=== PATIENT | male | born 1970 | race Caucasian/White ===

== ENCOUNTER 2018-02-15 10:51 | Inpatient (IN) | payer OTHER ==
[~2018-02-15] VITALS: Ht 190.5 cm; Wt 197.3 kg
[~2018-02-15 10:51] MED LIST: ADVIL200 M1 PO; BACTRIM DS TAB1 EACH PO; BACTROBAN15 G1 TOP; CIPRO500 MG PO; LISINOPRIL10 MG PO
[2018-02-15 11:34] LABS: BASOPHILS # (AUTO) 0.1 (0.0-0.1); BASOPHILS % 0.6 % (0.0-1.0); EOSINOPHILS % 0.1 % (0.0-6.0); HEMATOCRIT 39.1 % (38.2-49.6); HEMOGLOBIN 12.3 g/dL (14.0-18.0); LYMPHOCYTES # (AUTO) 2.7 (1.0-3.2); LYMPHOCYTES % 15.4 % (18.0-39.1); MEAN CORPUSCULAR HEMOGLOBIN 25.1 pg (28-32); MEAN CORPUSCULAR HGB CONC 31.5 g/dL (31-35); MEAN CORPUSCULAR VOLUME 79.8 fL (81-99); MONOCYTES # (AUTO) 1.4 (0.2-0.8); MONOCYTES % 7.8 % (4.4-11.3); NEUTROPHILS # (AUTO) 11.8 (2.1-6.9); NEUTROPHILS % 67.8 % (38.7-80.0); PLATELET COUNT 348 x10e3/uL (140-360); RED CELL DISTRIBUTION WIDTH 17.2 % (11.7-14.4)
[2018-02-15 11:53] LABS: ALANINE AMINOTRANSFERASE 72 IU/L (0-55); ALBUMIN 2.4 g/dL (3.5-5.0); ALBUMIN/GLOBULIN RATIO 0.4 (0.8-2.0); ALKALINE PHOSPHATASE 162 IU/L (40-150); ANION GAP 12.9 mmol/L (8-16); BLOOD UREA NITROGEN 22 mg/dL (7-26); BUN/CREATININE RATIO 19 (6-25); CALCIUM 10.1 mg/dL (8.4-10.2); CARBON DIOXIDE 30 mmol/L (22-29); CHLORIDE 96 mmol/L (98-107); CREATINE KINASE 31 IU/L (30-200); CREATININE, SERUM 1.16 mg/dL (0.72-1.25); EST GLOMERULAR FILTRATION RATE > 60 ML/MIN (60-); GLUCOSE 117 mg/dL (74-118); MAGNESIUM 1.5 MG/DL (1.3-2.1); POTASSIUM 3.9 mmol/L (3.5-5.1); SODIUM 135 mmol/L (136-145)
[2018-02-15 11:59] LABS: B-TYPE NATRIURETIC PEPTIDE2 157.8 pg/mL (0-100)
[2018-02-15] MEDS ORDERED: VANCOMYCIN 1GM/NS 250 ML 250 ML IV STA (12:03)
[2018-02-15] MEDS ORDERED: SODIUM CHLORIDE 0.9% 1000ML 1,000 ML ONE (12:04)
[2018-02-15] MEDS ORDERED: CLINDAMYCIN PHOS 900MG/ D5W 50 50 ML IV STA (12:04)
[2018-02-15 12:10] LABS: HYPOCHROMASIA SLIGHT; LYMPHOCYTES % (MANUAL) 10 % (19-48); METAMYELOCYTES % (MANUAL) 3 % (0-0); MONOCYTES % (MANUAL) 7 % (3.4-9.0); MYELOCYTES % (MANUAL) 1 % (0-0); NEUTROPHILS % (MANUAL) 74 % (40-74)
[2018-02-15 12:11] LABS: ANISOCYTOSIS SLIGHT; PLATELET ESTIMATE ADEQUATE; PLATELET MORPHOLOGY COMMENT NORMAL; RBC MORPHOLOGY COMMENT NORMAL
[2018-02-15] MEDS ORDERED: SODIUM CHLORIDE 0.9% 1000ML 1,000 ML IV SCH (12:15)
[2018-02-15] MEDS: CLINDAMYCIN PHOS 900MG/ D5W 50 50 ML IV SCH ×2 (12:32→17:40)
[2018-02-15] MEDS: ONDANSETRON HCL INJ 2 MG/ML VIAL IV PRN (13:00)
[2018-02-15] MEDS: MORPHINE SULFATE 2 MG/ML SYR IV PRN ×2 (13:00→14:26)
[2018-02-15] MEDS ORDERED: IBUPROFEN 600 MG TAB PO ONE (13:00)
[2018-02-15] MEDS ORDERED: LORAZEPAM INJ 2 MG/ML VIAL IV ONE (13:30)
[2018-02-15] MEDS ORDERED: MORPHINE SULFATE 2 MG/ML SYR ONE (14:13)
[2018-02-15] MEDS ORDERED: SODIUM CHLORIDE 0.9% 50ML 50 ML ONE (14:17)
[2018-02-15] MEDS ORDERED: IOPAMIDOL 370 MG/ML 200 ML INFUS..BTL INJ ONE (14:17)
--- NOTE | 2018-02-15 14:29 | Diagnostic Imaging Report ---
PROCEDURE: CT scan of the chest WITH intravenous contrast, using PE protocol. TECHNIQUE: The chest was scanned utilizing a multidetector helical scanner from the lung apex through the level of the adrenal glands after the IV administration of 100 cc of Isovue 370. Coronal and sagittal multiplanar reformations were obtained. Suboptimal bolus timing and the patient's body habitus renders evaluation of the pulmonary arteries limited. DLP: 657.16 mGy-cm COMPARISON: None. INDICATIONS: Chest pain FINDINGS: Lines/tubes: None. Lungs and Airways: The lungs and airways are normal with no focal abnormality demonstrated. Pleura: The pleural spaces are clear. Heart and mediastinum: The thyroid gland is normal. There are multiple mediastinal nodes present measuring up to 1.5 cm. This is nonspecific but prominent. Followup study in 4-6 months may be of benefit. The heart and pericardium are within normal limits. Combined origin of the left common carotid artery and the right innominate artery. No definite evidence of large pulmonary emboli within the above stated limitations. Soft tissues: Normal. Abdomen: Limited contrast-enhanced views of the upper abdomen show no abnormality within the visualized portions of the liver and spleen. There is a diaphragmatic surface lymph node on the right measuring 1.5 cm. Bones: Mild degenerative changes of the spine. IMPRESSION: 1. Limited evaluation for pulmonary emboli but no large central filling defects are seen. 2. Mediastinal lymphadenopathy is nonspecific but numerous. Jovon Corey D.O. Dictated by: Jovon Corey D.O. on 02/15/2018 at 14:34 Electronically approved by: Jovon Corey D.O. on 02/15/2018 at 14:34
[2018-02-15 17:00] VITALS: BP 154/91
[2018-02-15] MEDS ORDERED: VANCOMYCIN 1GM/NS 250 ML 250 ML IV SCH (17:00)
[2018-02-15 19:42] VITALS: BP 156/95
[2018-02-15 20:00] VITALS: BP 156/95
[2018-02-16] VITALS (7 sets, daily range): BP systolic 130–177; BP diastolic 46–88
[2018-02-16] MEDS ORDERED: SODIUM CHLORIDE 0.9% 250ML 250 ML ONE (00:08)
[2018-02-16] MEDS: CLINDAMYCIN PHOS 900MG/ D5W 50 50 ML IV SCH ×4 (00:35→18:00)
[2018-02-16] MEDS: VANCOMYCIN 1GM/NS 250 ML 250 ML IV SCH ×2 (00:57→13:00)
[2018-02-16] MEDS: MORPHINE SULFATE 2 MG/ML SYR IV PRN (07:08)
[2018-02-16] MEDS: ONDANSETRON HCL INJ 2 MG/ML VIAL IV PRN (07:09)
[2018-02-16] MEDS ORDERED: ACETAMINOPHEN 325 MG TAB PO PRN (10:15)
[2018-02-16] MEDS: CEFEPIME HCL 1 GM VIAL IV SCH ×2 (10:45→21:33)
[2018-02-16] MEDS ORDERED: FLUCONAZOLE 400MG/200ML BAG 200 ML IV SCH (10:45)
[2018-02-16] MEDS ORDERED: FUROSEMIDE INJ 10 MG/ML 4 ML VIAL IV NR (10:45)
--- NOTE | 2018-02-16 11:07 | History and Physical ---
PRIMARY CARE PROVIDER: Dr. Clint Gan. CHIEF COMPLAINT: Bilateral lower extremity necrotic skin tissue blistering and cellulitis, severely worse on the right compared to the left, associated with lymphedema. HISTORY: Patient is a 47-year-old morbidly obese male with obstructive sleep apnea, bilateral lower extremity lymphedema. Patient never had treated for lymphedema previously. 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 The patient went to [facility] and was hospitalized for 5 days. He was discharged on February 15, 2018, to go see his family physician, Dr. Gan. Upon arriving to Dr. Gan's office, Dr. Gan immediately sent the patient to the emergency room and the patient is now admitted. He had both lower extremities severely edematous with blistering of both feet, worse on the right compared to the left and then extending all the way up to the inner thigh area with redness and blistering. It is very tender to touch. There is quite significant phlegmon on both soft tissue of the thigh area, worse on the right compared to the left. Patient also had WBC of 17,000. He has a fever. He has blistering in his mouth most likely from yeast infection, was given antibiotics. He is only allergic to penicillin. The patient in the emergency room was placed on vancomycin and clindamycin. His swelling is subsiding but remains significant at this time. He will need infectious disease and wound care consultation and the patient is admitted for treatment. PAST MEDICAL HISTORY: Obesity, obstructive sleep apnea, lymphedema of lower extremities, and hypertension. PAST SURGICAL HISTORY: Noncontributory. SOCIAL HISTORY: Patient does not smoke. He is a social drinker. He does not use any recreational drugs. ALLERGIES: PENICILLIN. MEDICATIONS: Recently started on discharge from hospital is Cipro and Bactrim. He is on ibuprofen for pain and lisinopril for blood pressure. PHYSICAL EXAMINATION: VITAL SIGNS: Temperature is 98, blood pressure 136/46, pulse rate 82, and respirations 20. Patient on nasal cannula. HEENT: Normocephalic and atraumatic. NECK: Supple grossly. PULMONARY: Clear grossly. CARDIOVASCULAR: Regular rate and rhythm. ABDOMEN: Obese. EXTREMITIES: Extensive bilateral lower extremity cellulitis with blistering and phlegmon extending from the foot all the way up to the groin area, more extensive on the right compared to the left. He also has severe lymphedema with significant skin changes and venous stasis ulcer. NEUROLOGIC: No focal deficit. LABORATORY: Sodium 135, potassium 3.9, chloride 96, bicarb 30, BUN 22, creatinine 1.1, and glucose 117. WBC 17.4, hemoglobin 12.3, hematocrit 39.1, and platelets 348,000. CT scan: No gross evidence of PE. Lower extremity venous Doppler is still pending. IMPRESSIONS 1. Bilateral lower extremity cellulitis associated with blister, venous stasis ulcer with infection, lymphedema worse on the right lower extremity compared to the left associated with phlegmon and skin thickening with lymphedema of both legs. 2. Blistering necrotic tissue noticed of both feet, worse on the right compared to the left. 3. Baseline lymphedema, obesity, obstructive sleep apnea, and hypertension. PLAN: Consultation with Dr. Heard and Dr. Jefferson. IV antibiotics. I agree with clindamycin and vancomycin. I would like to add on Azactam for pseudomonas coverage since the patient is allergic to penicillin. We will continue to monitor the patient's lab work. Will push diuresis to help with the lymphedema. The patient may need wound care, may need compression. Will continue with the patient's oxygen support for now. We will start the patient on DVT prophylaxis as well. Job#: [id number]
--- NOTE | 2018-02-16 11:51 | Consultation ---
DATE OF CONSULTATION: February 16, 2018 INFECTIOUS DISEASE CONSULTATION This is a 47-year-old gentleman, severely obese, a patient of Dr. Lemus of internal medicine, noted at [facility] in [place], currently in room 208. This 47-year-old gentleman reported to the emergency department complaining of bilateral lower extremity cellulitis, edema and pain with multiple wounds. He has been battling these wounds for multiple years. This is not new. He lives in a mobile home. As far as the home condition, it is not clear if it is contributing to the problem or not. However, the patient is now here with some pain of the lower extremities and open wounds. He follows up with a bicycle ii assembler as an outpatient who apparently gave him some triamcinolone it seems like in a container that he applies to his lower extremities as prescribed by a bicycle ii assembler. However, he has not taken it, and the wounds are progressively getting worse now with blisters and ulcers. Also seems like he has some superficial and maybe some fungal dermatitis as well. PAST MEDICAL HISTORY: Includes superobese, debility, chronic wounds of bilateral lower extremities, chronic pain. ALLERGIES: ALLERGIC TO PENICILLIN. REVIEW OF SYSTEMS: Pain of bilateral lower extremities. No nausea, vomiting, fever, chills, chest pain or shortness of breath. MEDICATIONS: Medications have been reviewed. As far as infectious disease point of view, the patient is on Cleocin and vancomycin. LABORATORY STUDIES: White count 17.4, platelets 348, hemoglobin 12.3. Sodium 135, potassium 3.9, BUN 22, creatinine 1.16. AST 58, ALT 72, ALP 162. Blood cultures done times 2 pending. RADIOLOGY STUDIES: CT of the chest suggested limited evaluation of pulmonary embolism but no large central filling defects are seen. Also, mediastinal lymphadenopathy is nonspecific but numerous. Had a venous Doppler of bilateral lower extremities on the . However, I do not have a copy of the results. PHYSICAL EXAMINATION VITALS: Temperature 97.1, pulse 72, respirations 20, blood pressure 177/81. CV: S1 and S2. CHEST: Equal expansion. Clear to auscultation bilaterally. No acute distress. ABDOMEN: Morbidly obese, soft, nontender. EXTREMITIES: Moist. No pale extremities. Significant cellulitis and dermatitis. Seems less lymphadenopathy. Also, venous stasis and venous ulcers of bilateral lower extremities seem to be more on the right side than the left. He may have some component of fungal dermatitis as well. ASSESSMENT AND PLAN: This is a 47-year-old gentleman, superobese, weight 435 pounds, chronic bilateral lower extremities who follows up with a bicycle ii assembler as an outpatient. He is prescribed triamcinolone. It seems like it is not having any effect for improvement. However, the patient is here seeking medical attention. Currently on vancomycin and Cleocin. Allergy noted to penicillin. Will add cefepime, also add Diflucan. He has some elevated liver function tests. We will do ultrasound of the abdomen and order hep panel. He has low albumin level. Encourage modification in diet and elevation of lower extremities. I have discussed with the patient that his legs will not be resolved by the time he will be leaving the hospital. However, continuation of medical care is very important for improvement of the legs, not necessarily complete resolution. He is to follow the orders from the hospital when he is discharged home. I also again discussed with the patient regarding diet modification, eating smart to improve his dietary intake. I want to thank Dr. Lemus for this kind consult and allowing us to participate in the medical needs of this gentleman. Further management of this patient is based on daily findings on laboratory and physical examination. Dictated by: PAPITO Del Toro Job#: [id number]
[2018-02-16] MEDS: FLUCONAZOLE 400MG/200ML BAG 200 ML IV SCH (12:00)
[2018-02-16] MEDS ORDERED: AZTREONAM 1 GM/NS 50 ML 50 ML IV SCH (14:00)
[2018-02-16] MEDS: NYSTATIN SUSPENSION 5 ML UDC PO SCH ×2 (14:00→21:32)
[2018-02-16] MEDS: ENOXAPARIN SOD INJ 40 MG/0.4 ML SYR SC SCH (17:00)
[2018-02-16] MEDS: SENNOSIDES 8.6 MG TAB PO SCH (17:00)
--- NOTE | 2018-02-16 18:33 | Diagnostic Imaging Report ---
PROCEDURE:ABDOMINAL ULTRASOUND COMPARISON:None. INDICATIONS:elevated liver enzymes TECHNIQUE: Luna-scale and color sonographic images were obtained of the abdomen in transverse and sagittal planes. FINDINGS: Liver: 22 cm in length in right midclavicular line, enlarged. Increased echogenicity. No masses. Main portal vein: 1.2 cm, normal in size. Hepatopetal flow Gallbladder: No stones or sludge. No wall thickening, hydrops, or pericholecystic fluid. Common Bile Duct: 0.5 cm in diameter, within normal limits. Sonographic Magallon's sign: Negative Right kidney: 13.1 x 5.9 x 5.9 cm. No hydronephrosis, stones, or masses. Left kidney: 14.2 x 7.4 x 5.5 cm. No hydronephrosis, stones, or masses. Partly limited exam secondary to body habitus. Spleen: Mildly enlarged measuring 13.5 cm in length. No masses. Pancreas: The visualized portions are unremarkable. Inferior vena cava: Patent Aorta: Visualized portions are within normal limits Ascites: None CONCLUSION: Hepatomegaly and hepatic steatosis. Mild splenomegaly. Dictated by: Fidel Leon M.D. on 02/16/2018 at 18:37 Electronically approved by: Fidel Leon M.D. on 02/16/2018 at 18:37
[2018-02-16] MEDS: HYDROCODONE/APAP 7.5MG-325MG 1 EA TAB PO PRN (21:33)
[2018-02-17] VITALS (8 sets, daily range): BP systolic 144–194; BP diastolic 74–91
[2018-02-17] MEDS: VANCOMYCIN 1GM/NS 250 ML 250 ML IV SCH ×2 (01:00→16:37)
[2018-02-17 05:35] LABS: BASOPHILS # (AUTO) 0.1 (0.0-0.1); BASOPHILS % 0.5 % (0.0-1.0); EOSINOPHILS % 0.1 % (0.0-6.0); HEMOGLOBIN 11.1 g/dL (14.0-18.0); LYMPHOCYTES # (AUTO) 2.4 (1.0-3.2); LYMPHOCYTES % 15.7 % (18.0-39.1); MEAN CORPUSCULAR HEMOGLOBIN 24.8 pg (28-32); MEAN CORPUSCULAR HGB CONC 30.8 g/dL (31-35); MEAN CORPUSCULAR VOLUME 80.5 fL (81-99); MONOCYTES # (AUTO) 1.2 (0.2-0.8); MONOCYTES % 7.6 % (4.4-11.3); NEUTROPHILS # (AUTO) 10.6 (2.1-6.9); NEUTROPHILS % 68.1 % (38.7-80.0); PLATELET COUNT 337 x10e3/uL (140-360); RED BLOOD COUNT 4.47 x10e6/uL (4.3-5.7); RED CELL DISTRIBUTION WIDTH 17.2 % (11.7-14.4)
[2018-02-17 05:52] LABS: ANION GAP 11.2 mmol/L (8-16); BLOOD UREA NITROGEN 18 mg/dL (7-26); BUN/CREATININE RATIO 15 (6-25); CALCIUM 9.3 mg/dL (8.4-10.2); CARBON DIOXIDE 35 mmol/L (22-29); CHLORIDE 97 mmol/L (98-107); CREATININE, SERUM 1.24 mg/dL (0.72-1.25); EST GLOMERULAR FILTRATION RATE > 60 ML/MIN (60-); GLUCOSE 87 mg/dL (74-118); POTASSIUM 4.2 mmol/L (3.5-5.1); SODIUM 139 mmol/L (136-145)
[2018-02-17] MEDS: NYSTATIN SUSPENSION 5 ML UDC PO SCH ×3 (06:00→21:40)
[2018-02-17] MEDS: CLINDAMYCIN PHOS 900MG/ D5W 50 50 ML IV SCH ×5 (06:00→23:47)
[2018-02-17 06:50] LABS: EOSINOPHILS % (MANUAL) 2 % (0-7); LYMPHOCYTES % (MANUAL) 11 % (19-48); MONOCYTES % (MANUAL) 10 % (3.4-9.0); MYELOCYTES % (MANUAL) 1 % (0-0); NEUTROPHILS % (MANUAL) 76 % (40-74); PLATELET ESTIMATE ADEQUATE; PLATELET MORPHOLOGY COMMENT NORMAL; RBC MORPHOLOGY COMMENT NORMAL
[2018-02-17] MEDS: CEFEPIME HCL 1 GM VIAL IV SCH ×2 (07:57→22:20)
[2018-02-17] MEDS: SENNOSIDES 8.6 MG TAB PO SCH ×2 (07:57→16:37)
[2018-02-17] MEDS: MORPHINE SULFATE 2 MG/ML SYR IV PRN ×2 (08:03→23:30)
[2018-02-17] MEDS: FUROSEMIDE INJ 10 MG/ML 4 ML VIAL IV SCH (09:00)
[2018-02-17] MEDS: FLUCONAZOLE 400MG/200ML BAG 200 ML IV SCH (14:06)
[2018-02-17] MEDS ORDERED: LOSARTAN POTAS100 MG PO (15:55)
[2018-02-17] MEDS: ENOXAPARIN SOD INJ 40 MG/0.4 ML SYR SC SCH (17:40)
[2018-02-18] VITALS (7 sets, daily range): BP systolic 161–206; BP diastolic 76–96
[2018-02-18] MEDS: VANCOMYCIN 1GM/NS 250 ML 250 ML IV SCH (00:29)
[2018-02-18] MEDS: CLINDAMYCIN PHOS 900MG/ D5W 50 50 ML IV SCH ×3 (05:59→17:23)
[2018-02-18] MEDS: NYSTATIN SUSPENSION 5 ML UDC PO SCH ×3 (05:59→22:00)
[2018-02-18 06:04] LABS: BASOPHILS # (AUTO) 0.1 (0.0-0.1); BASOPHILS % 0.5 % (0.0-1.0); HEMATOCRIT 34.1 % (38.2-49.6); HEMOGLOBIN 10.6 g/dL (14.0-18.0); LYMPHOCYTES # (AUTO) 2.1 (1.0-3.2); LYMPHOCYTES % 15.6 % (18.0-39.1); MEAN CORPUSCULAR HEMOGLOBIN 24.9 pg (28-32); MEAN CORPUSCULAR HGB CONC 31.1 g/dL (31-35); MEAN CORPUSCULAR VOLUME 80.2 fL (81-99); MONOCYTES # (AUTO) 0.9 (0.2-0.8); MONOCYTES % 6.8 % (4.4-11.3); NEUTROPHILS # (AUTO) 9.8 (2.1-6.9); NEUTROPHILS % 72.7 % (38.7-80.0); PLATELET COUNT 353 x10e3/uL (140-360); RED BLOOD COUNT 4.25 x10e6/uL (4.3-5.7); RED CELL DISTRIBUTION WIDTH 17.2 % (11.7-14.4)
[2018-02-18 06:22] LABS: BLOOD UREA NITROGEN 15 mg/dL (7-26); BUN/CREATININE RATIO 15 (6-25); CARBON DIOXIDE 34 mmol/L (22-29); CHLORIDE 95 mmol/L (98-107); CREATININE, SERUM 1.01 mg/dL (0.72-1.25); EST GLOMERULAR FILTRATION RATE > 60 ML/MIN (60-); GLUCOSE 95 mg/dL (74-118); SODIUM 136 mmol/L (136-145)
[2018-02-18] MEDS: SENNOSIDES 8.6 MG TAB PO SCH ×2 (08:06→16:55)
[2018-02-18] MEDS: FUROSEMIDE INJ 10 MG/ML 4 ML VIAL IV SCH (08:19)
[2018-02-18] MEDS: CEFEPIME HCL 1 GM VIAL IV SCH ×2 (08:19→23:09)
[2018-02-18 09:01] LABS: EOSINOPHILS % (MANUAL) 4 % (0-7); LYMPHOCYTES % (MANUAL) 13 % (19-48); METAMYELOCYTES % (MANUAL) 1 % (0-0); MONOCYTES % (MANUAL) 10 % (3.4-9.0); NEUTROPHILS % (MANUAL) 72 % (40-74); PLATELET ESTIMATE ADEQUATE; PLATELET MORPHOLOGY COMMENT NORMAL; RBC MORPHOLOGY COMMENT NORMAL
[2018-02-18] MEDS: VANCOMYCIN HCL IV SCH ×2 (10:05→22:00)
[2018-02-18] MEDS: SODIUM CHLORIDE 0.9% IV SCH ×2 (10:05→22:00)
[2018-02-18] MEDS: FLUCONAZOLE 400MG/200ML BAG 200 ML IV SCH (13:46)
[2018-02-18] MEDS: ENOXAPARIN SOD INJ 40 MG/0.4 ML SYR SC SCH (17:23)
[2018-02-18] MEDS: MORPHINE SULFATE 2 MG/ML SYR IV PRN (19:30)
[2018-02-18] MEDS: HYDROCODONE/APAP 7.5MG-325MG 1 EA TAB PO PRN (22:01)
[2018-02-19] VITALS (7 sets, daily range): BP systolic 150–181; BP diastolic 68–109
[2018-02-19] MEDS: CLINDAMYCIN PHOS 900MG/ D5W 50 50 ML IV SCH ×5 (00:10→23:21)
[2018-02-19 06:11] LABS: BLOOD UREA NITROGEN 15 mg/dL (7-26); BUN/CREATININE RATIO 14 (6-25); CALCIUM 9.1 mg/dL (8.4-10.2); CARBON DIOXIDE 36 mmol/L (22-29); CHLORIDE 96 mmol/L (98-107); CREATININE, SERUM 1.06 mg/dL (0.72-1.25); EST GLOMERULAR FILTRATION RATE > 60 ML/MIN (60-); GLUCOSE 80 mg/dL (74-118); SODIUM 138 mmol/L (136-145)
[2018-02-19] MEDS: NYSTATIN SUSPENSION 5 ML UDC PO SCH ×3 (06:12→22:20)
[2018-02-19] MEDS: FUROSEMIDE INJ 10 MG/ML 4 ML VIAL IV SCH (08:05)
[2018-02-19] MEDS: SENNOSIDES 8.6 MG TAB PO SCH ×2 (08:05→16:22)
[2018-02-19] MEDS ORDERED: VANCOMYCIN HCL 2 GM in SODIUM CHLORIDE 0.9% 500ML 500 ML IV SCH (10:00)
[2018-02-19] MEDS: CEFEPIME HCL 1 GM VIAL IV SCH ×2 (10:41→23:21)
[2018-02-19] MEDS: FLUCONAZOLE 400MG/200ML BAG 200 ML IV SCH (12:47)
[2018-02-19] MEDS: ENOXAPARIN SOD INJ 40 MG/0.4 ML SYR SC SCH (16:22)
[2018-02-19] MEDS: MORPHINE SULFATE 2 MG/ML SYR IV PRN (16:33)
[2018-02-19] MEDS ORDERED: SODIUM CHLORIDE 0.9% 250ML 250 ML ONE (18:02)
[2018-02-19] MEDS: VANCOMYCIN HCL 1.5 GM in SODIUM CHLORIDE 0.9% 250ML 300 ML IV SCH (20:38)
[2018-02-20] VITALS (7 sets, daily range): BP systolic 168–195; BP diastolic 74–96
[2018-02-20] MEDS: MORPHINE SULFATE 2 MG/ML SYR IV PRN ×3 (00:39→21:23)
[2018-02-20] MEDS: NYSTATIN SUSPENSION 5 ML UDC PO SCH ×3 (05:39→21:23)
[2018-02-20] MEDS: CLINDAMYCIN PHOS 900MG/ D5W 50 50 ML IV SCH ×3 (05:39→17:27)
[2018-02-20] MEDS: FUROSEMIDE INJ 10 MG/ML 4 ML VIAL IV SCH (08:00)
[2018-02-20] MEDS: VANCOMYCIN HCL 1.5 GM in SODIUM CHLORIDE 0.9% 250ML 300 ML IV SCH ×2 (08:00→21:22)
[2018-02-20] MEDS: SENNOSIDES 8.6 MG TAB PO SCH ×2 (08:00→16:53)
[2018-02-20] MEDS: CEFEPIME HCL 1 GM VIAL IV SCH ×2 (11:30→22:27)
[2018-02-20] MEDS: FLUCONAZOLE 400MG/200ML BAG 200 ML IV SCH (11:35)
[2018-02-20] MEDS: ENOXAPARIN SOD INJ 40 MG/0.4 ML SYR SC SCH (16:53)
[2018-02-21] VITALS (9 sets, daily range): BP systolic 131–199; BP diastolic 58–91
[2018-02-21] MEDS: CLINDAMYCIN PHOS 900MG/ D5W 50 50 ML IV SCH ×4 (00:10→17:55)
[2018-02-21] MEDS: NYSTATIN SUSPENSION 5 ML UDC PO SCH ×3 (06:34→21:40)
[2018-02-21] MEDS: SENNOSIDES 8.6 MG TAB PO SCH ×2 (08:37→16:44)
[2018-02-21] MEDS: VANCOMYCIN HCL 1.5 GM in SODIUM CHLORIDE 0.9% 250ML 300 ML IV SCH ×2 (08:37→21:39)
[2018-02-21] MEDS: FUROSEMIDE INJ 10 MG/ML 4 ML VIAL IV SCH (08:37)
[2018-02-21] MEDS ORDERED: SODIUM CHLORIDE 0.9% 250ML 250 ML ONE (10:45)
[2018-02-21] MEDS: CEFEPIME HCL 1 GM VIAL IV SCH ×2 (11:15→22:30)
[2018-02-21] MEDS: FLUCONAZOLE 400MG/200ML BAG 200 ML IV SCH (13:39)
[2018-02-21] MEDS: ENOXAPARIN SOD INJ 40 MG/0.4 ML SYR SC SCH (17:44)
[2018-02-21] MEDS: MORPHINE SULFATE 2 MG/ML SYR IV PRN (19:35)
[2018-02-22] MEDS: MORPHINE SULFATE 2 MG/ML SYR IV PRN (06:04)
[2018-02-22] MEDS: NYSTATIN SUSPENSION 5 ML UDC PO SCH ×3 (06:04→21:43)
[2018-02-22] MEDS: CLINDAMYCIN PHOS 900MG/ D5W 50 50 ML IV SCH ×4 (06:04→18:14)
[2018-02-22 08:00] VITALS: BP 137/74
[2018-02-22] MEDS: VANCOMYCIN HCL 1.5 GM in SODIUM CHLORIDE 0.9% 250ML 300 ML IV SCH ×2 (08:21→21:43)
[2018-02-22] MEDS: SENNOSIDES 8.6 MG TAB PO SCH ×2 (08:21→17:00)
[2018-02-22] MEDS: FUROSEMIDE INJ 10 MG/ML 4 ML VIAL IV SCH (08:21)
[2018-02-22] MEDS: CEFEPIME HCL 1 GM VIAL IV SCH ×2 (11:15→22:35)
[2018-02-22 12:00] VITALS: BP 137/74
[2018-02-22] MEDS: FLUCONAZOLE 400MG/200ML BAG 200 ML IV SCH (13:23)
[2018-02-22 16:00] VITALS: BP 159/91
[2018-02-22 17:40] VITALS: BP 137/74
[2018-02-22] MEDS: ENOXAPARIN SOD INJ 40 MG/0.4 ML SYR SC SCH (18:14)
[2018-02-22] MEDS: HYDROCODONE/APAP 7.5MG-325MG 1 EA TAB PO PRN (19:22)
[2018-02-22 21:00] VITALS: BP 167/78
[2018-02-23] MEDS: CLINDAMYCIN PHOS 900MG/ D5W 50 50 ML IV SCH
[2018-02-23] MEDS: NYSTATIN SUSPENSION 5 ML UDC PO SCH (05:43)
[2018-02-23] MEDS: HYDROCODONE/APAP 7.5MG-325MG 1 EA TAB PO PRN (05:44)
[2018-02-23 08:00] VITALS: BP 148/79
[2018-02-23] MEDS: FUROSEMIDE INJ 10 MG/ML 4 ML VIAL IV SCH (08:48)
[2018-02-23] MEDS: SENNOSIDES 8.6 MG TAB PO SCH (08:48)
[2018-02-23] MEDS: VANCOMYCIN HCL 1.5 GM in SODIUM CHLORIDE 0.9% 250ML 300 ML IV SCH (08:48)
[2018-02-23] MEDS ORDERED: NIFEDIPINE10 MG PO (09:43)
[2018-02-23] MEDS ORDERED: TYLENOL WITH C1 EACH PO (09:44)
[2018-02-23] MEDS ORDERED: POTASSIUM CHLO10 ME1 PO (09:44)
[2018-02-23] MEDS ORDERED: LASIX40 MG PO (09:44)
[2018-02-23] MEDS ORDERED: DIFLUCAN100 MG PO (09:45)
[2018-02-23] MEDS ORDERED: CELEBREX100 MG PO (09:46)
--- NOTE | 2018-02-23 10:09 | Discharge Summary ---
PCP: Clint Gan MD CONSULTANTS 1. Dr. Prashanth Heard 2. Dr. Blood FINAL DIAGNOSES 1. Extensive bilateral lower extremity cellulitis associated with lymphedema and venous stasis ulceration. 2. Bilateral lower extremity dermatitis. 3. Bilateral lower extremity lymphedema chronically. 4. Obstructive sleep apnea and morbidly obesity. 5. Overall failed outpatient treatment. SUMMARY: Patient is a 47-year-old female with bilateral lower extremity lymphedema with significant dermatitis and lymphedema with venous stasis ulceration. The patient came to the hospital where he was hospitalized approximately 6 days. After he was discharged, he came to see his PCP, but the infection was much worse with the oral medications of Bactrim and Cipro as outpatient. The patient came directly to the emergency room here per his PCP's recommendation. Here the patient was placed on fluconazole, cefepime and vancomycin. The infection is much improved. The patient still has swelling but much improved. Redness has subsided. He still has significant lymphedema and venous stasis skin changes with ulceration and dermatitis. The patient's arrangement for wound care center has been done. Patient also now had a right upper extremity PICC line. The patient is to start IV antibiotic with Dr. Heard today at 11 a.m. All arrangements have been made. The patient will go home with the following instructions: 1. Resume lisinopril 10 mg daily for blood pressure. 2. Nifedipine XL 30 mg daily. 3. Lasix 40 mg q.a.m. 4. Potassium 10 mEq daily. 5. Tylenol No. 3 q.6 p.r.n. for pain. 6. Diflucan 100 mg daily for 14 days. 7. Celebrex 200 mg q.12 h. p.r.n. for pain. 8. Patient instructed follow up with Dr. Gan next week. Patient stable and discharged home today. Job#: [id number]
== END 2018-02-23 10:04 | disposition home or self-care (01) | DRG 872 ==
LOC: ER 10:51 → ERHOLD 13:22 → MED/SURG2 16:56
PROVIDERS: ADMIT Internal Medicine; ATTEND Internal Medicine
PROC: 02HV33Z Insertion of Infusion Device into Superior Vena Cava, Percutaneous Approach (ICD-10-PCS; principal; 2018-02-22)
DX: A41.9 Sepsis, unspecified organism (principal); L03.116 Cellulitis of left lower limb; Z68.43 Body mass index [BMI] 50.0-59.9, adult; L03.115 Cellulitis of right lower limb; I89.0 Lymphedema, not elsewhere classified; E66.01 Morbid (severe) obesity due to excess calories; I87.2 Venous insufficiency (chronic) (peripheral); L30.9 Dermatitis, unspecified; G47.33 Obstructive sleep apnea (adult) (pediatric); Z68.37 Body mass index [BMI] 37.0-37.9, adult; Z88.0 Allergy status to penicillin; I10 Essential (primary) hypertension
CPT/HCPCS: 36415; 71260; 76700; 80048; 80053; 80202; 82550; 82553; 83605; 83735; 83880; 84484; 85025; 87040; 93970; 97139; 99284; J0692; J1450; J1650; J1940; J2060; J2270; J2405; J3370; J7030; J7040; J7050; Q9967

== ENCOUNTER 2018-03-08 12:51 | Emergency (ER) | payer OTHER ==
[~2018-03-08] VITALS: Ht 190.5 cm; Wt 184.6 kg
[~2018-03-08 12:51] MED LIST changes: +CELEBREX100 MG PO; +DIFLUCAN100 MG PO; +LASIX40 MG PO; +LOSARTAN POTAS100 MG PO; +NIFEDIPINE10 MG PO; +POTASSIUM CHLO10 ME1 PO; +TYLENOL WITH C1 EACH PO
[2018-03-08 14:35] VITALS: BP 149/82
== END 2018-03-08 14:36 | disposition home or self-care (01) ==
LOC: ER 12:51
DX: S41.131A Puncture wound without foreign body of right upper arm, initial encounter (principal)
CPT/HCPCS: 99283

== ENCOUNTER 2018-07-07 05:30 | Inpatient (IN) | payer OTHER ==
[~2018-07-07] VITALS: Ht 190.5 cm; Wt 190.5 kg
--- OUTSIDE RECORDS SUMMARY | 2018-07-07 05:32 | XMS REPORT | Continuity of Care Document ---
Author Author [facility] Interface Address Unknown Phone Unavailable Problems Problem Status Onset Date Classification Date Reported Comments Source Arm fracture<sup>1</sup> Resolved Problem 02/15/2018 [facility] HTN (<span ID="[id number]">Confirmed</span>) Active Problem 02/15/2018 [facility] Morbid obesity Active Problem 02/15/2018 [facility] Medications Medication Details Route Status Patient Instructions Ordering Provider Order Date Source diltiazem 180 mg/24 hours oral capsule, extended release 180 mg=1 cap, PO, Daily, # 30 cap, 3 Refill(s), Pharmacy: [facility] Active 12/07/2017 [facility] Silver Sulfadiazine 10 MG/ML Topical Cream [Silvadene] 1 appl, TOP, BID, Apply thin layer to affected area, X 7 day, # 50 gm, 5 Refill(s), Pharmacy: [facility] Active 12/07/2017 [facility] Silver Sulfadiazine 10 MG/ML Topical Cream [Silvadene] 1 appl, TOP, BID, apply thin layer to affected area, X 7 day, # 50 gm, 2 Refill(s), Pharmacy: [facility] No Longer Active 11/09/2017 [facility] losartan 100 mg oral tablet 100 mg=1 tab, PO, Daily, # 30 tab, 1 Refill(s), Pharmacy: [facility] Active 11/09/2017 [facility] predniSONE 20 mg oral tablet See Instructions, Take 3 Tabs per day for 2 days Take 2 Tabs per day for 2 days Take 1 tab per day untill med runs out, # 15 tab, 0 Refill(s), Pharmacy: [facility] No Longer Active 11/09/2017 [facility] 200 ACTUAT Albuterol 0.09 MG/ACTUAT Metered Dose Inhaler [Proventil] 2 puff, INHALER, Q4H, PRN wheezing, coughing, or shortness of breath, # 1 ea, 1 Refill(s), Pharmacy: [facility] Active 11/09/2017 [facility] {6 (Azithromycin 250 MG Oral Tablet [Zithromax]) } Pack [Z-PAKS] See Instructions, Take 2 tablets by mouth the first day then 1 tablet by mouth days 2-5., X 5 day, # 6 tab, 0 Refill(s), Pharmacy: [facility] No Longer Active 11/09/2017 [facility] Allergies, Adverse Reactions, Alerts Substance Category Reaction Severity Reaction type Status Date Reported Comments Source penicillins Assertion Drug allergy [facility] lisinopril Assertion Severe Drug allergy Active [facility] Immunizations Immunization Date Given Site Status Last Updated Comments Source Results Order Name Results Value Reference Range Date Interpretation Comments Source Vital Signs Vital Sign Value Date Comments Source BMI Calculated 56.77 12/07/2017 [facility] Height 185.42 cm 12/07/2017 [facility] Weight 195.182 12/07/2017 [facility] Systolic (mm Hg) 177 12/07/2017 [facility] Diastolic (mm Hg) 114 12/07/2017 [facility] Temperature Oral (F) 98.2 F 12/07/2017 [facility] Heart Rate 98 12/07/2017 [facility] Height 185.42 cm 11/09/2017 [facility] BMI Calculated 55.13 11/09/2017 [facility] Weight 189.545 11/09/2017 [facility] Heart Rate 98 11/09/2017 [facility] Temperature Oral (F) 98.7 F 11/09/2017 [facility] Systolic (mm Hg) 195 11/09/2017 [facility] Diastolic (mm Hg) 112 11/09/2017 [facility] Encounters Location Location Details Encounter Type Encounter Number Reason For Visit Attending Provider ADM Date DC Date Status Source Outpatient [id number] SHANE STEARNS 06/19/2017 Active [facility] Outpatient [id number] SHANE STEARNS 11/09/2017 [facility] [place] [facility] [id number] Shane Stearns 11/09/2017 11/10/2017 [facility] Outpatient [id number] SHANE STEARNS 12/07/2017 [facility] [place] Outpatient [id number] Shane Stearns 12/07/2017 12/08/2017 [facility] Procedures Procedure Code Date Perfomer Comments Source
[2018-07-07] MEDS ORDERED: LIDOCAINE JELLY 2% 10ML URO-JET TOP STA (05:58)
[2018-07-07] MEDS ORDERED: LIDOCAINE JELLY 2% 10ML URO-JET ONE (06:01)
[2018-07-07] MEDS ORDERED: HYDRALAZINE HCL 20 MG/ML VIAL IV ONE (06:15)
[2018-07-07] MEDS ORDERED: NITROGLYCERIN 2% OINT 1 GM PKT TOP ONE (06:15)
[2018-07-07] MEDS ORDERED: VANCOMYCIN 1GM/NS 250 ML 250 ML IV SCH (06:30)
[2018-07-07 06:46] LABS: BASOPHILS % 0.3 % (0.0-1.0); EOSINOPHILS % 0.3 % (0.0-6.0); HEMATOCRIT 37.3 % (38.2-49.6); HEMOGLOBIN 11.1 g/dL (14.0-18.0); LYMPHOCYTES # (AUTO) 1.8 (1.0-3.2); LYMPHOCYTES % 13.9 % (18.0-39.1); MEAN CORPUSCULAR HEMOGLOBIN 24.1 pg (28-32); MEAN CORPUSCULAR HGB CONC 29.8 g/dL (31-35); MEAN CORPUSCULAR VOLUME 81.1 fL (81-99); MONOCYTES # (AUTO) 0.6 (0.2-0.8); NEUTROPHILS # (AUTO) 10.1 (2.1-6.9); NEUTROPHILS % 79.9 % (38.7-80.0); PLATELET COUNT 373 x10e3/uL (140-360); RED CELL DISTRIBUTION WIDTH 15.6 % (11.7-14.4)
--- NOTE | 2018-07-07 06:52 | Diagnostic Imaging Report ---
EXAMINATION: CHEST SINGLE (PORTABLE) INDICATION: Chest pain, evaluate for CHF, enlarged mediastinum. COMPARISON: Chest CT 02/15/2018 FINDINGS: AP view TUBES and LINES: None. LUNGS: Lungs are well inflated. Central pulmonary venous congestion. There is no evidence of pneumonia. PLEURA: No pleural effusion or pneumothorax. HEART AND MEDIASTINUM: The cardiomediastinal silhouette is accentuated by AP technique, mildly enlarged. BONES AND SOFT TISSUES: No acute osseous lesion. Soft tissues are unremarkable. UPPER ABDOMEN: No free air under the diaphragm. IMPRESSION: Mild enlargement of the cardiac silhouette with central pulmonary venous congestion. Signed by: DR. Fidel Leon MD on 07/07/2018 6:49 AM
[2018-07-07 06:56] LABS: BILIRUBIN,URINE NEGATIVE (NEGATIVE); CLARITY,URINE CLOUDY (CLEAR); COLOR,URINE YELLOW (YELLOW); KETONES,URINE NEGATIVE (NEGATIVE); LEUKOCYTE ESTERASE ,URINE 1+ (NEGATIVE); NITRITE,URINE POSITIVE (NEGATIVE); PROTEIN,URINE DIPSTICK TRACE (NEGATIVE); URINE UROBILINOGEN 1 mg/dL (0.2 - 1)
[2018-07-07 06:58] LABS: BACTERIA,URINE MANY /HPF; EPITHELIAL CELLS,URINE FEW /LPF
[2018-07-07 06:59] LABS: MUCUS,URINE FEW (RARE); TRIPLE PHOSPHATE CRYSTAL,UR FEW (FEW)
[2018-07-07 07:00] LABS: ALANINE AMINOTRANSFERASE 20 IU/L (0-55); ALBUMIN 2.5 g/dL (3.5-5.0); ALBUMIN/GLOBULIN RATIO 0.5 (0.8-2.0); ALKALINE PHOSPHATASE 81 IU/L (40-150); ANION GAP 11.9 mmol/L (8-16); BLOOD UREA NITROGEN 11 mg/dL (7-26); BUN/CREATININE RATIO 13 (6-25); CALCIUM 9.2 mg/dL (8.4-10.2); CARBON DIOXIDE 31 mmol/L (22-29); CHLORIDE 100 mmol/L (98-107); CREATINE KINASE 119 IU/L (30-200); CREATININE, SERUM 0.85 mg/dL (0.72-1.25); EST GLOMERULAR FILTRATION RATE > 60 ML/MIN (60-); GLUCOSE 122 mg/dL (74-118); POTASSIUM 3.9 mmol/L (3.5-5.1); SODIUM 139 mmol/L (136-145)
[2018-07-07] MEDS ORDERED: DIPHENHYDRAMINE HCL INJ 50 MG/ML VIAL IV PRN (07:30)
[2018-07-07] MEDS ORDERED: ENALAPRILAT IV INJ 1.25 MG/ML VIAL IV PRN (07:30)
[2018-07-07] MEDS ORDERED: CLONIDINE HCL 0.2 MG TAB PO PRN ×2 (07:30→14:00)
[2018-07-07] MEDS ORDERED: LACTULOSE SYRUP 20 GM/30 ML UDC PO PRN (07:30)
[2018-07-07] MEDS ORDERED: ACETAMINOPHEN 325 MG TAB PO PRN (07:30)
[2018-07-07] MEDS ORDERED: IBUPROFEN 200 MG TAB PO PRN (07:30)
[2018-07-07] MEDS ORDERED: ONDANSETRON HCL INJ 2 MG/ML VIAL IV PRN (07:30)
[2018-07-07] MEDS ORDERED: SODIUM CHLORIDE FLUSH 10 ML SYR INJ PRN (07:30)
[2018-07-07] MEDS: AZTREONAM 2GM/NS 100ML 2 GM in AZTREONAM 2GM/NS 100ML 100 ML IV SCH ×2 (08:52→17:55)
[2018-07-07] MEDS: NYSTATIN 15 GM POWDER UD BTL TOP SCH (08:53)
[2018-07-07] MEDS: ENOXAPARIN SOD INJ 40 MG/0.4 ML SYR SC SCH (08:53)
[2018-07-07] MEDS: FAMOTIDINE 20 MG TAB PO SCH ×2 (08:54→17:54)
[2018-07-07] MEDS: MORPHINE SULFATE INJ 4 MG/ML INJ IV PRN ×3 (08:54→23:15)
[2018-07-07] MEDS ORDERED: HYDROCHLOROTHIAZIDE 25 MG TAB PO SCH (09:00)
[2018-07-07] MEDS ORDERED: AMLODIPINE BESYLATE 10 MG TAB PO SCH (09:00)
[2018-07-07] MEDS ORDERED: LISINOPRIL 20 MG TAB PO SCH (09:00)
--- NOTE | 2018-07-07 12:27 | Consultation ---
DATE OF CONSULTATION: July 07, 2018 UROLOGY CONSULTATION CONSULTATION CALLED BY: Dr. Curry. CHIEF UROLOGIC COMPLAINT AND REASON FOR CONSULTATION: Genital edema, incomplete urinary emptying, urinary tract infection. HISTORY OF PRESENT ILLNESS: Mr. Larios is a chronically ill 48-year-old super obese male patient admitted to the hospital with bilateral lower extremity cellulitis, which was going on for over six years. A urologic consultation was requested for occasional urinary incomplete emptying and genital penile scrotal edema. The patient denied dysuria and denied gross hematuria. The entire abdomen and lower half of the body appears to becoming increasingly edematous per his report. PAST MEDICAL HISTORY: Super obesity, debility, chronic pain, and urinary tract infections. MEDICATIONS: Please see MAR. ALLERGIES: PENICILLIN. SOCIAL HISTORY: Denies smoking. No drinking. FAMILY HISTORY: Denied urologic stones or malignancies. REVIEW OF SYSTEMS: Noncontributory other than problems mentioned above for 12 organ systems. PHYSICAL EXAMINATION GENERAL: An old appearing stated age male, in no acute distress. VITALS: Currently, temperature 98.4, pulse 106, respirations 16, blood pressure 219/128, weight 407 pounds, and BMI greater than 51. HEENT: Sclerae are icteric. NECK: Supple. BACK: Without costovertebral angle tenderness. ABDOMEN: Soft. It is obese. Cannot palpate anything. : Positive edema. EXTREMITIES: 4+ edema, foul smelling lower extremities with obvious fungal and cellulitis superinfection. NEURO: Moves 4 extremities to command. PSYCH: Alert. Mood appropriate. SKIN: Intact. FACE: Normal color. PERTINENT LABORATORY DATA: Hemoglobin 11, hematocrit 37, platelet count 373,000, white cell count 80691. Sodium 139, potassium 3.9, chloride 100, bicarb 31, BUN 11 and creatinine 0.85. Glucose 122. Urinalysis 11 to 20 whites and 6 to 10 reds. An ultrasound in February revealing splenomegaly and hepatomegaly. IMPRESSION 1. Penoscrotal edema. 2. Morbid obesity super. 3. Urinary tract infection, present on admission. 4. Microscopic hematuria. 5. Malignant hypertension. 6. Bilateral lower extremity cellulitis. PLAN 1. Further malignant hypertension to the primary service, morbid obesity. The patient needs weight loss. We will consider a bariatric surgery consultation as the patient is clearly suffering multiple sequelae secondary to his super morbid obesity. 2. The patient's genital edema would elevate the penis and scrotum. Currently, the patient is voiding with gross infections of the entire lower extremity and anasarca would not recommend instrumenting as this may introduce infections further. A urine culture has been sent. We will adjust the culture-specific antibiotics as available. 3. For microscopic hematuria, the patient electively can undergo cystoscopy. Thank you for allowing us to participate in the care of your patient. We will be happy to follow along with you. Job#: [id number] ZANDER cc:Dr. Curry
[2018-07-07 13:00] VITALS: BP 151/84
[2018-07-07 13:30] VITALS: BP 151/84
[2018-07-07] MEDS: ONDANSETRON HCL INJ 2 MG/ML VIAL IV PRN (13:40)
[2018-07-07] MEDS ORDERED: DEXTROSE 50% SYRINGE 50 ML IV PRN (14:30)
[2018-07-07] MEDS: NIFEDIPINE CR 30 MG TAB PO SCH (14:54)
[2018-07-07] MEDS ORDERED: INFLUENZA VIRUS VAC SPLIT INJ 0.5 ML SYR IM ONE (15:00)
[2018-07-07] MEDS ORDERED: PNEUMOCOCCAL VACCINE POLYVALENT 23 MCG/0.5 ML VIAL IM ONE (15:00)
--- NOTE | 2018-07-07 15:11 | History and Physical ---
PRIMARY CARE PHYSICIAN: Dr. Clint Gan. CONSULTANTS 1. Dr. Prashanth Heard. 2. Dr. Bijan Geller. CHIEF COMPLAINT: Bilateral lower extremity swelling, infection, severe lymphedema, worsening condition associated with infection and also difficulty urinating. HISTORY: Patient is a 48-year-old male, came in with increasing lower extremity swelling and also noticed that the patient is unable to put out urine due to the anatomy of his penis with phimosis. The patient is admitted for further evaluation and treatment. Dr. Geller had seen the patient. Patient has increasing lower extremity swelling due to urinary bladder retention secondary to outlet obstruction. The patient is still into wound care for his bilateral lower extremity lymphedema, but he is supposed to have it wrapped but not now due to his problem with urination and also pain. Patient now developing infection of the lower extremities. PAST MEDICAL HISTORY: Bilateral lower extremity lymphedema, morbid obesity with BMI greater than 60, hypertension, obstructive sleep apnea. PAST SURGICAL HISTORY: Noncontributory. SOCIAL HISTORY: Patient does not smoke or use alcohol. No recreational drugs. ALLERGIES: TO PENICILLIN. HOME MEDICATIONS: List is reviewed. REVIEW OF SYSTEMS: As mentioned above. PHYSICAL EXAMINATION VITAL SIGNS: Temperature is 98, blood pressure 220/118, pulse rate is 98, respirations 22. GENERAL: The patient is in no acute distress. HEENT: Normocephalic, atraumatic. Sclerae anicteric. NECK: Supple grossly. PULMONARY: Diminished breath sounds bilaterally due to effort and obesity. CARDIOVASCULAR: Regular rate and rhythm. ABDOMEN: Morbidly obese. EXTREMITIES: Severe lymphedema associated with skin changes and infection in the lower extremities. NEUROLOGIC: No gross focal deficit. LABORATORY: WBC is 13, hemoglobin 11, hematocrit 37, platelets are 373. Sodium is 139, potassium 3.9, chloride 100, bicarb 31, BUN is 11, creatinine 0.8, glucose is 122. IMAGING: Chest x-ray, there is mild enlargement of cardiac silhouette with central pulmonary venous congestion. IMPRESSION 1. [id number] diastolic dysfunction and congestive heart failure with fluid overload. 2. Bilateral lower extremity edema associated with severe lymphedema. 3. Morbid obesity. 4. Possible penile urinary outlet obstruction. 5. Hypertensive malignancy. 6. Baseline obstructive sleep apnea. PLAN: IV antibiotics. IV Lasix. Wound care consultation with Dr. Jefferson. Continue with home medication. Blood pressure control. Lymphedema treatment. We will monitor the patient closely. We will the adjust the patient's home medications for this acute condition. Job#: [id number] OTILIO
[2018-07-07 15:46] VITALS: BP 111/58
[2018-07-07] MEDS ORDERED: SODIUM CHLORIDE 0.9% 250ML 250 ML ONE (17:26)
[2018-07-07] MEDS: INSULIN LISPRO 100 UNIT/1 ML 3ML VIAL SQ SCH ×2 (17:54→21:02)
[2018-07-07] MEDS: LISINOPRIL 20 MG TAB PO SCH (17:55)
[2018-07-07] MEDS: SODIUM CHLORIDE 0.9% IV SCH (18:30)
[2018-07-07] MEDS: VANCOMYCIN HCL IV SCH (18:30)
--- NOTE | 2018-07-07 19:13 | Consultation ---
DATE OF CONSULTATION: July 07, 2018 REASON FOR CONSULTATION: Cellulitis of bilateral lower extremity. HISTORY OF PRESENT ILLNESS: This patient who is well known to me from before. He is a 48-year-old white male with history of morbidly obese patient, bilateral lower extremity severe lymphedema, history of cellulitis of the legs bilateral lower extremities. Back in February, he was treated with IV antibiotic and discharged home and he was doing well. He was supposed to follow up with wound care in lymphedema clinic. He never got to see the lymphedema clinic. He is said to have ulcers in bilateral lower extremities. Apparently, this has been managed by wound care, but this got progressively worse with redness and swelling, feeling really bad, had to come to the hospital. He was being admitted with redness, swelling, pain, and drainage from his legs. Patient is being admitted. PAST MEDICAL HISTORY: Bilateral lower extremities lymphedema, morbidly obese patient, BMI more than 60, hypertension, and obstructive sleep apnea. PAST SURGICAL HISTORY: Denies. ALLERGIES: NKA. SOCIAL HISTORY: There is no smoking, drug abuse, or alcohol abuse. FAMILY HISTORY: Noncontributory. MEDICATION: List reviewed. He is currently on Azactam, vancomycin, ibuprofen, and zolpidem. REVIEW OF SYSTEMS GENERAL: At the present time, he is feeling fair. HEENT: There is no headache, visual changes, hearing changes. GI: There is no nausea, no vomiting, no diarrhea. CARDIAC: There is no arrhythmia. NEURO: No seizure activity. SKIN: There is no rash except on the lower extremity where he have chronic changes, but now there is redness, swelling, and oozing from both legs. LABORATORY DATA: Reviewed. Chart reviewed. Sodium 139, BUN 11, creatinine 0.85, glucose 122. White count 12.7. PHYSICAL EXAMINATION GENERAL: He is currently alert, oriented. Does not seem to be in acute distress. Morbidly obese patient. HEENT: Normocephalic. Not icteric. NECK: Supple. CHEST: Clear. HEART: S1 and S2. No S3, S4. No murmur. ABDOMEN: Soft. Bowel sounds present. No tenderness. EXTREMITIES: Bilateral lower extremities has erythema and there is edema. There is edema and erythema involving the whole leg. IMPRESSION: Bilateral lower extremities cellulitis in a patient with morbidly obese patient. Agree with vancomycin, however, we will adjust for his weight. We will increase the dose to 2 grams q.12 hours. He is currently on Azactam. Recommend to obtain elastic stockings, thigh-high stocking pressure to the thigh on every day. Wound care consultation. He will follow. Job#: [id number] VAS
--- NOTE | 2018-07-07 19:32 | Diagnostic Imaging Report ---
EXAMINATION: CHEST XRAY LINE PLACEMENT INDICATION: PICC line placement COMPARISON: Chest x-ray 07/07/2018 at 623 FINDINGS: AP view TUBES and LINES: Right upper extremity PICC tip overlies the cavoatrial junction. LUNGS: Lungs are well inflated. Stable pulmonary venous congestion. There is no evidence of pneumonia or pulmonary edema. PLEURA: No pleural effusion or pneumothorax. HEART AND MEDIASTINUM: Stable mild enlargement of the cardiac silhouette. BONES AND SOFT TISSUES: No acute osseous lesion. Soft tissues are unremarkable. UPPER ABDOMEN: No free air under the diaphragm. IMPRESSION: Right upper extremity PICC tip overlies the cavoatrial junction. Stable mild cardiomegaly and pulmonary venous congestion. Signed by: DR. Fidel Leon MD on 07/07/2018 7:29 PM
[2018-07-07 20:00] VITALS: BP 130/58
[2018-07-08] VITALS (8 sets, daily range): BP systolic 116–140; BP diastolic 58–71
[2018-07-08] MEDS: SODIUM CHLORIDE 0.9% IV SCH (06:27)
[2018-07-08] MEDS: VANCOMYCIN HCL IV SCH (06:27)
[2018-07-08 06:47] LABS: BASOPHILS % 0.3 % (0.0-1.0); EOSINOPHILS % 0.2 % (0.0-6.0); HEMOGLOBIN 10.1 g/dL (14.0-18.0); LYMPHOCYTES # (AUTO) 1.2 (1.0-3.2); LYMPHOCYTES % 11.3 % (18.0-39.1); MEAN CORPUSCULAR HEMOGLOBIN 24.7 pg (28-32); MEAN CORPUSCULAR HGB CONC 29.7 g/dL (31-35); MEAN CORPUSCULAR VOLUME 83.1 fL (81-99); MONOCYTES # (AUTO) 0.8 (0.2-0.8); MONOCYTES % 7.9 % (4.4-11.3); NEUTROPHILS # (AUTO) 8.3 (2.1-6.9); NEUTROPHILS % 79.7 % (38.7-80.0); PLATELET COUNT 310 x10e3/uL (140-360); RED BLOOD COUNT 4.09 x10e6/uL (4.3-5.7); RED CELL DISTRIBUTION WIDTH 15.6 % (11.7-14.4)
[2018-07-08 07:07] LABS: BLOOD UREA NITROGEN 12 mg/dL (7-26); BUN/CREATININE RATIO 14 (6-25); CALCIUM 8.9 mg/dL (8.4-10.2); CARBON DIOXIDE 35 mmol/L (22-29); CHLORIDE 95 mmol/L (98-107); CREATININE, SERUM 0.85 mg/dL (0.72-1.25); EST GLOMERULAR FILTRATION RATE > 60 ML/MIN (60-); GLUCOSE 97 mg/dL (74-118); MAGNESIUM 1.9 MG/DL (1.3-2.1); SODIUM 135 mmol/L (136-145)
[2018-07-08] MEDS: FAMOTIDINE 20 MG TAB PO SCH ×2 (08:10→16:25)
[2018-07-08] MEDS: NIFEDIPINE CR 30 MG TAB PO SCH (08:10)
[2018-07-08] MEDS: LISINOPRIL 20 MG TAB PO SCH ×2 (08:10→16:26)
[2018-07-08] MEDS: AZTREONAM 2GM/NS 100ML 2 GM in AZTREONAM 2GM/NS 100ML 100 ML IV SCH ×2 (08:10→17:30)
[2018-07-08] MEDS: ENOXAPARIN SOD INJ 40 MG/0.4 ML SYR SC SCH (08:10)
[2018-07-08] MEDS: INSULIN LISPRO 100 UNIT/1 ML 3ML VIAL SQ SCH ×4 (08:11→21:00)
[2018-07-08] MEDS ORDERED: VANCOMYCIN HCL 2 GM in SODIUM CHLORIDE 0.9% 500ML 500 ML IV SCH (09:30)
[2018-07-08] MEDS ORDERED: SODIUM HYPOCHLORITE 0.25% 480 ML SOLN IR ONE (11:30)
[2018-07-08] MEDS: NYSTATIN 15 GM POWDER UD BTL TOP SCH (12:06)
[2018-07-08] MEDS: ONDANSETRON HCL INJ 2 MG/ML VIAL IV PRN (12:15)
[2018-07-08] MEDS: MORPHINE SULFATE INJ 4 MG/ML INJ IV PRN (12:15)
[2018-07-08] MEDS: HYDROCODONE/APAP 7.5MG-325MG 1 EA TAB PO PRN (16:25)
[2018-07-08] MEDS: VANCOMYCIN HCL 2 GM in SODIUM CHLORIDE 0.9% 500ML 500 ML IV SCH (18:07)
--- NOTE | 2018-07-08 21:46 | Consultation ---
DATE OF CONSULTATION: July 08, 2018 WOUND CONSULTATION Thank you, Dr. Lemus, for asking me to see this patient for bilateral lower extremity ulcers. HISTORY OF PRESENT ILLNESS: A 48-year-old morbidly obese male patient, history of chronic bilateral lymphedema and ulcerations, tried treatment at wound center at [facility] one time. Patient developed pain and multiple excoriations and purulent drainage and ulceration to both legs, came to the emergency room, admitted for lymphangitis and cellulitis. Patient was admitted with urinary retention. Patient was diagnosed with phimosis and edema that he was unable to urinate. PAST MEDICAL HISTORY: Chronic bilateral lower extremity lymphedema, morbid obesity, BMI greater than 60, hypertension, obstructive sleep apnea. PERSONAL HISTORY: Denies smoking or alcohol. MEDICATIONS 1. Lisinopril 20 mg daily. 2. Lovenox 40 mg daily. 3. Ambien 5 mg at night. 4. Ibuprofen 400 mg q.6. 5. Pepcid 20 mg daily. 6. Amlodipine 10 mg daily. 7. Lactulose 20 g b.i.d. 8. Hydrochlorothiazide 50 mg daily. 9. Nystatin 10 g daily. PHYSICAL EXAMINATION VITAL SIGNS: Blood pressure 140/62, pulse 80, temperature 97.7. HEAD/ENT: Normal. NECK: No JVD. LUNGS: Clear. CVS: Normal. ABDOMEN: Soft, nondistended. EXTREMITIES: Lower extremities, chronic lymphedema changes noted both legs. Left leg, the patient has scabs. When I pulled the scab, patient had a purulent drainage under the skin. Skin excoriation present, both legs, with the cellulitis, redness, and pain on touch. Lymphedema seen, both legs. ASSESSMENT: Bilateral lymphedema, chronic, with ulcerations, venous ulcer. PLAN 1. Will apply Adaptic, ABD, Kerlix, and Coban. 2. IV antibiotic. 3. Irrigate the skin with Dakin solution prior to dressing change. 4. Discussed with patient at length about lifestyle modification including losing weight. 5. Use lymphedema pump at home. 6. Follow at one of the wound center closely to prevent worsening of lymphedema ulcers to the legs. Job#: [id number] CQ
[2018-07-09] VITALS (7 sets, daily range): BP systolic 111–151; BP diastolic 53–77
[2018-07-09 05:31] LABS: BASOPHILS % 0.3 % (0.0-1.0); EOSINOPHILS % 0.4 % (0.0-6.0); HEMATOCRIT 35.8 % (38.2-49.6); HEMOGLOBIN 10.3 g/dL (14.0-18.0); LYMPHOCYTES # (AUTO) 1.1 (1.0-3.2); LYMPHOCYTES % 13.3 % (18.0-39.1); MEAN CORPUSCULAR HEMOGLOBIN 23.9 pg (28-32); MEAN CORPUSCULAR HGB CONC 28.8 g/dL (31-35); MEAN CORPUSCULAR VOLUME 83.1 fL (81-99); MONOCYTES # (AUTO) 0.7 (0.2-0.8); MONOCYTES % 8.2 % (4.4-11.3); NEUTROPHILS # (AUTO) 6.1 (2.1-6.9); NEUTROPHILS % 76.9 % (38.7-80.0); PLATELET COUNT 361 x10e3/uL (140-360); RED BLOOD COUNT 4.31 x10e6/uL (4.3-5.7); RED CELL DISTRIBUTION WIDTH 15.6 % (11.7-14.4)
[2018-07-09 05:48] LABS: ANION GAP 9.1 mmol/L (8-16); CALCIUM 8.9 mg/dL (8.4-10.2); CARBON DIOXIDE 32 mmol/L (22-29); CHLORIDE 95 mmol/L (98-107); CREATININE, SERUM 0.82 mg/dL (0.72-1.25); EST GLOMERULAR FILTRATION RATE > 60 ML/MIN (60-); GLUCOSE 105 mg/dL (74-118); POTASSIUM 4.1 mmol/L (3.5-5.1); SODIUM 132 mmol/L (136-145)
[2018-07-09] MEDS: AZTREONAM 2GM/NS 100ML 2 GM in AZTREONAM 2GM/NS 100ML 100 ML IV SCH ×2 (06:00→17:39)
[2018-07-09 07:07] LABS: BLOOD UREA NITROGEN 15 mg/dL (7-26); BUN/CREATININE RATIO 18 (6-25)
[2018-07-09] MEDS: INSULIN LISPRO 100 UNIT/1 ML 3ML VIAL SQ SCH ×5 (07:30→21:16)
[2018-07-09] MEDS: VANCOMYCIN HCL 2 GM in SODIUM CHLORIDE 0.9% 500ML 500 ML IV SCH ×2 (08:05→18:50)
[2018-07-09] MEDS: ENOXAPARIN SOD INJ 40 MG/0.4 ML SYR SC SCH (08:36)
[2018-07-09] MEDS: NIFEDIPINE CR 30 MG TAB PO SCH (08:36)
[2018-07-09] MEDS: LISINOPRIL 20 MG TAB PO SCH ×2 (08:36→17:11)
[2018-07-09] MEDS: FAMOTIDINE 20 MG TAB PO SCH ×2 (08:36→17:11)
[2018-07-09] MEDS: NYSTATIN 15 GM POWDER UD BTL TOP SCH (11:01)
[2018-07-09] MEDS: MORPHINE SULFATE INJ 4 MG/ML INJ IV PRN (11:58)
[2018-07-10] VITALS (8 sets, daily range): BP systolic 127–167; BP diastolic 59–87
[2018-07-10] MEDS: ZOLPIDEM TARTRATE 5 MG TAB PO PRN ×2 (00:02→21:19)
[2018-07-10] MEDS: AZTREONAM 2GM/NS 100ML 2 GM in AZTREONAM 2GM/NS 100ML 100 ML IV SCH ×2 (06:08→17:48)
[2018-07-10] MEDS: INSULIN LISPRO 100 UNIT/1 ML 3ML VIAL SQ SCH ×3 (07:30→16:05)
[2018-07-10] MEDS ORDERED: ALPRAZOLAM 0.25 MG TAB PO PRN (09:00)
[2018-07-10] MEDS: FAMOTIDINE 20 MG TAB PO SCH ×2 (09:38→16:20)
[2018-07-10] MEDS: ENOXAPARIN SOD INJ 40 MG/0.4 ML SYR SC SCH (09:38)
[2018-07-10] MEDS: NYSTATIN 15 GM POWDER UD BTL TOP SCH (09:38)
[2018-07-10] MEDS: NIFEDIPINE CR 30 MG TAB PO SCH (09:38)
[2018-07-10] MEDS: FUROSEMIDE INJ 10 MG/ML 4 ML VIAL IV SCH (09:38)
[2018-07-10] MEDS: VANCOMYCIN HCL 1.5 GM in SODIUM CHLORIDE 0.9% 250ML 300 ML IV SCH ×2 (09:38→21:16)
[2018-07-10] MEDS: LISINOPRIL 20 MG TAB PO SCH ×2 (09:38→16:20)
[2018-07-10] MEDS: PAROXETINE HCL 12.5 MG TABSR PO SCH (10:59)
[2018-07-10] MEDS: HYDROCODONE/APAP 7.5MG-325MG 1 EA TAB PO PRN (11:15)
--- NOTE | 2018-07-10 15:11 | Consultation ---
DATE OF CONSULTATION: July 10, 2018 ATTENDING PHYSICIAN: Dr. Javon Lemus. PRIMARY CARE PHYSICIAN: Dr. Clint Gan. REASON FOR CONSULTATION: Sleep apnea. HISTORY OF PRESENT ILLNESS: Mr. Larios is a 48-year-old man with multiple medical problems. He has morbid obesity. He has been diagnosed with sleep apnea in the past, last study he thinks was over 2 years ago, but he has been unable to tolerate any CPAP. He came to the hospital on or about the with increased swelling of the lower extremities. He has had previous lower extremity swelling and cellulitis and has been doing wraps which provide some improvement, but it got worse, he had more pain, and he also had difficulty urinating. While here he was noted to drop his oxygen saturation when he sleeps. He denies any chest pain or shortness of breath. He does admit to swelling of the lower extremities as well as the scrotum and the penis. He does have some dyspnea with exertion but overall says he functions pretty well and is very active for approximately an 18-hour day. He does snore, he does have irregular breathing, and again he has had a positive sleep study previously. He denies any chest pain or palpitations. He does sleep most comfortably sitting up in a recliner. He still continues with urologic complaints such as frequency and hesitancy and dribbling. He did previously have some dark urine when he thought he was getting a urinary tract or kidney infection and drank lots of cranberry juice and water. He states he does still have some dysuria, and when we discussed diuretic therapy he did not want that because he stated it would make him urinate more and he has a hard time urinating and only urinates very little. PAST MEDICAL HISTORY: Again includes lymphedema, cellulitis, morbid obesity, sleep apnea, hypertension. He also appears to have been recently diagnosed with diabetes and has thyroid problems. PAST SURGICAL HISTORY: None. SOCIAL HISTORY: He smoked for 17 years less than 1 pack a day. He drinks alcohol on very rare occasions. He denies drug use. 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 DRUG ALLERGIES: PENICILLIN. MEDICATIONS: Home medications and MAR reviewed. REVIEW OF SYSTEMS: As documented above. PHYSICAL EXAMINATION VITAL SIGNS: His BMI is 52.5. His weight is 420 pounds. He is 75 inches tall. His temperature is 98.4. His pulse is in the 80s. He is currently sitting down. His oxygen saturation with room air is around 93%. When he came in, his blood pressure was as high as 220/126. He did have an elevated temperature of 100.3 on the . Currently he is afebrile, blood pressure 167/82, and 95% to 96% with nasal cannula while sitting in the chair awake. GENERAL APPEARANCE: This is a pleasant, although morbidly obese white man sitting in the bedside recliner. HEENT: His head is normocephalic. His mucous membranes are moist. Pupils are round, reactive. Extraocular movements are intact. NECK: Short and very thick. CHEST: Clear to auscultation. HEART: Has a regular rate and rhythm without murmurs, rubs or gallops. ABDOMEN: Markedly obese, soft, nontender. He does have edema of the scrotum. EXTREMITIES: He has lymphedema of the lower extremities with brawny color change. They are dressed. He does have some skin furrowing. NEUROLOGICALLY: He is awake, alert. Speech is fluent. He can get up on his own, and his cranial nerves are intact. LABORATORY DATA: White count when he came in was 12, hemoglobin and hematocrit were 11 and 37 with 373,000 platelets. Most recently on the the white count was 7.9, hemoglobin and hematocrit were 10 and 35 with 361,000 platelets. Urinalysis had trace protein, no glucose, 1+ blood, nitrite positive, leukocyte esterase positive, 11-20 white cells, many bacteria. Chemistry on the was notable for a bicarbonate of 31, BUN and creatinine of 11 and 0.85. Bicarbonate or serum carbon dioxide was 32 on the chemistry yesterday. X-RAY: One view for PICC placement done on the was reviewed. It is limited due to his body habitus but does show cardiomegaly with pulmonary venous congestion, but the lungs themselves are described as well inflated. ASSESSMENT 1. Obstructive sleep apnea with likely obesity-hypoventilation syndrome. He does have elevated serum bicarb or metabolic alkalosis. 2. Cor pulmonale and diastolic or hypertensive heart failure. 3. Lymphedema and scrotal edema. 4. Urinary problems including hesitancy, frequency and dysuria. 5. Extreme morbid obesity with a body mass index of 52. 6. Hypertension. RECOMMENDATIONS AND PLAN: We will give him a trial of BiPAP. We did discuss this at length that we would be guessing on the settings. He was in agreement. We also discussed the fact that there are some people who are unable to tolerate this and sometimes a tracheostomy is needed for therapy. We will get an ABG. We will get a standing 2-view chest x-ray, follow up his labs. We will also get an echocardiogram to document any diastolic dysfunction as well as RV function or dilatation. He will ultimately need a repeat outpatient polysomnography and CPAP titration. Continue DVT prophylaxis. I recommend diuretics, but he is very reluctant given his difficulties in urination. Further recommendations pending hospital course and findings. Job#: [id number] EV cc:CLINT GAN MD
--- NOTE | 2018-07-10 15:36 | Diagnostic Imaging Report ---
EXAMINATION: PA and lateral views of the chest. COMPARISON: 07/07/2018 CLINICAL HISTORY: Cor pulmonale DISCUSSION: Stable position of right upper extremity PICC. Lungs remain well-inflated with mild prominence of the central pulmonary vasculature. No focal consolidation, pleural effusion, or pneumothorax. Stable mild enlargement of the cardiac silhouette. No acute osseous abnormalities. IMPRESSION: Stable chest, with mild cardiomegaly and pulmonary venous congestion. Signed by: Dr. Brice Diaz M.D. on 07/10/2018 3:32 PM
[2018-07-10] MEDS: MORPHINE SULFATE INJ 4 MG/ML INJ IV PRN (16:20)
[2018-07-10] MEDS ORDERED: SODIUM CHLORIDE 0.9% 250ML 250 ML ONE (21:10)
[2018-07-11] VITALS: BP 180/85
[2018-07-11] MEDS: AZTREONAM 2GM/NS 100ML 2 GM in AZTREONAM 2GM/NS 100ML 100 ML IV SCH ×2 (06:18→18:39)
[2018-07-11] MEDS: INSULIN LISPRO 100 UNIT/1 ML 3ML VIAL SQ SCH ×4 (07:30→20:56)
[2018-07-11 07:35] LABS: HEMATOCRIT 37.8 % (38.2-49.6); HEMOGLOBIN 11.3 g/dL (14.0-18.0); MEAN CORPUSCULAR HEMOGLOBIN 24.1 pg (28-32); MEAN CORPUSCULAR HGB CONC 29.9 g/dL (31-35); MEAN CORPUSCULAR VOLUME 80.6 fL (81-99); PLATELET COUNT 381 x10e3/uL (140-360); RED BLOOD COUNT 4.69 x10e6/uL (4.3-5.7); RED CELL DISTRIBUTION WIDTH 15.4 % (11.7-14.4)
[2018-07-11 07:36] LABS: ABG PCO2 48 mmHg (41-51); ABG PH 7.45 (7.31-7.41)
[2018-07-11 07:37] LABS: ABG HCO3 33 mmol/L (23-28); ABG PO2 62 mmHg (80-105)
[2018-07-11 08:00] VITALS: BP 143/79
[2018-07-11] MEDS: FAMOTIDINE 20 MG TAB PO SCH ×2 (08:24→16:55)
[2018-07-11] MEDS: ENOXAPARIN SOD INJ 40 MG/0.4 ML SYR SC SCH (08:25)
[2018-07-11] MEDS: NYSTATIN 15 GM POWDER UD BTL TOP SCH (08:25)
[2018-07-11] MEDS: PAROXETINE HCL 12.5 MG TABSR PO SCH (08:25)
[2018-07-11] MEDS: LISINOPRIL 20 MG TAB PO SCH ×2 (08:25→16:55)
[2018-07-11] MEDS: NIFEDIPINE CR 30 MG TAB PO SCH (08:25)
[2018-07-11] MEDS: FUROSEMIDE INJ 10 MG/ML 4 ML VIAL IV SCH (08:25)
[2018-07-11 08:46] LABS: ANION GAP 9.7 mmol/L (8-16); BLOOD UREA NITROGEN 9 mg/dL (7-26); BUN/CREATININE RATIO 12 (6-25); CALCIUM 9.4 mg/dL (8.4-10.2); CARBON DIOXIDE 32 mmol/L (22-29); CHLORIDE 95 mmol/L (98-107); CREATININE, SERUM 0.77 mg/dL (0.72-1.25); EST GLOMERULAR FILTRATION RATE > 60 ML/MIN (60-); GLUCOSE 103 mg/dL (74-118); MAGNESIUM 1.6 MG/DL (1.3-2.1); POTASSIUM 3.7 mmol/L (3.5-5.1); SODIUM 133 mmol/L (136-145)
[2018-07-11 08:47] LABS: ALANINE AMINOTRANSFERASE 26 IU/L (0-55); ALBUMIN 2.5 g/dL (3.5-5.0); ALBUMIN/GLOBULIN RATIO 0.5 (0.8-2.0); ALKALINE PHOSPHATASE 81 IU/L (40-150); EOSINOPHILS % (MANUAL) 3 % (0-7); LYMPHOCYTES % (MANUAL) 14 % (19-48); MONOCYTES % (MANUAL) 10 % (3.4-9.0); NEUTROPHILS % (MANUAL) 72 % (40-74); PLATELET ESTIMATE ADEQUATE; PLATELET MORPHOLOGY COMMENT NORMAL; RBC MORPHOLOGY COMMENT NORMAL
[2018-07-11] MEDS: VANCOMYCIN HCL 1.5 GM in SODIUM CHLORIDE 0.9% 250ML 300 ML IV SCH ×2 (09:10→20:56)
[2018-07-11 09:50] VITALS: BP 143/79
[2018-07-11] MEDS: MORPHINE SULFATE INJ 4 MG/ML INJ IV PRN ×2 (10:40→16:10)
[2018-07-11 12:00] VITALS: BP 176/90
[2018-07-11] MEDS ORDERED: FUROSEMIDE INJ 10 MG/ML 4 ML VIAL IV SCH ×2 (14:30→14:45)
[2018-07-11 20:00] VITALS: BP 169/80
[2018-07-11] MEDS ORDERED: VANCOMYCIN 1GM/NS 250 ML 500 ML ONE (20:43)
[2018-07-11] MEDS: HYDROCODONE/APAP 7.5MG-325MG 1 EA TAB PO PRN (20:57)
[2018-07-12] VITALS: BP 132/69
[2018-07-12 04:00] VITALS: BP 153/78
[2018-07-12] MEDS: AZTREONAM 2GM/NS 100ML 2 GM in AZTREONAM 2GM/NS 100ML 100 ML IV SCH (05:57)
[2018-07-12] MEDS: INSULIN LISPRO 100 UNIT/1 ML 3ML VIAL SQ SCH (07:30)
[2018-07-12 07:39] VITALS: BP 180/80
[2018-07-12] MEDS: LISINOPRIL 20 MG TAB PO SCH (08:02)
[2018-07-12] MEDS: PAROXETINE HCL 12.5 MG TABSR PO SCH (08:03)
[2018-07-12] MEDS: FAMOTIDINE 20 MG TAB PO SCH (08:03)
[2018-07-12] MEDS: NIFEDIPINE CR 30 MG TAB PO SCH (08:03)
[2018-07-12] MEDS: FUROSEMIDE INJ 10 MG/ML 4 ML VIAL IV SCH (08:03)
[2018-07-12] MEDS: ENOXAPARIN SOD INJ 40 MG/0.4 ML SYR SC SCH (08:03)
[2018-07-12] MEDS ORDERED: SODIUM HYPOCHLORITE 0.25% 480 ML SOLN IR SCH (09:00)
[2018-07-12] MEDS: NYSTATIN 15 GM POWDER UD BTL TOP SCH (09:07)
[2018-07-12 10:12] VITALS: BP 180/85
[2018-07-12] MEDS ORDERED: XANAX0.25 MG PO (10:22)
[2018-07-12] MEDS ORDERED: LASIX40 MG PO (10:22)
[2018-07-12] MEDS ORDERED: POTASSIUM CHLO20 ME1 PO (10:25)
[2018-07-12] MEDS ORDERED: LISINOPRIL10 MG PO (10:25)
[2018-07-12] MEDS ORDERED: PROCARDIA XL30 MG PO (10:26)
[2018-07-12] MEDS ORDERED: PAXIL CR12.5 MG PO (10:26)
--- NOTE | 2018-07-12 21:05 | Discharge Summary ---
PRIMARY CARE PHYSICIAN: Dr. Clint Gan. CONSULTANTS: 1. Dr. Prashanth Heard. 2. Dr. Bijan Geller. 3. Dr. [place] Good. 4. Dr. Blood. FINAL DIAGNOSES: 1. Acute on chronic diastolic dysfunction congestive heart failure exacerbation. 2. Bilateral lower extremity cellulitis associated with lymphedema. 3. Urinary retention, improving. 4. Baseline obstructive sleep apnea. 5. Morbid obesity. 6. Hypertensive malignancy. 7. Lymphedema bilateral lower extremities. SUMMARY: A 48-year-old male came in with severe lymphedema, swelling and infection bilateral lower extremities, worse on the left compared to the right leg. Patient also had systolic blood pressure very elevated in the 200s as well. He is also fluid overloaded. The patient is baseline with morbid obesity and lymphedema lower extremity and recurrent venous stasis ulcer with infection. The patient did not take care of himself. The patient received multiple treatments. He had a right upper extremity PICC line at this time. Arrangement for IV antibiotic with Dr. Heard is arranged. The patient diureses better. He is doing much better now. He has lost significant amount of weight. His BMI is greater than 50. Patient will go home with the following instructions. 1. The patient to follow up with Dr. Heard for IV antibiotics. Follow up with Wound Care for wound care of the venous stasis ulcer and wrapping and compression of the lower extremity. 2. Medication is Xanax 0.25 mg q.6 p.r.n. for anxiety, Lasix 40 mg daily, potassium 20 mEq daily, lisinopril 20 mg b.i.d., Procardia XL 60 mg daily, and Paxil CR 12.5 mg daily. The patient is stable, discharged home today. Follow up with the specialists and PCP in approximately 1 to 2 weeks. Job#: [id number] TREVOR
== END 2018-07-12 10:40 | disposition home or self-care (01) | DRG 292 ==
LOC: ER 05:30 → ERHOLD 07:17 → MED/SURG3 13:12
PROVIDERS: ADMIT Internal Medicine; ATTEND Internal Medicine
PROC: 02HV33Z Insertion of Infusion Device into Superior Vena Cava, Percutaneous Approach (ICD-10-PCS; principal; 2018-07-07)
DX: I11.0 Hypertensive heart disease with heart failure (principal); Z68.43 Body mass index [BMI] 50.0-59.9, adult; E66.2 Morbid (severe) obesity with alveolar hypoventilation; N39.0 Urinary tract infection, site not specified; I50.33 Acute on chronic diastolic (congestive) heart failure; I89.0 Lymphedema, not elsewhere classified; E66.01 Morbid (severe) obesity due to excess calories; G47.33 Obstructive sleep apnea (adult) (pediatric); N50.89 Other specified disorders of the male genital organs
CPT/HCPCS: 36415; 36569; 36600; 71045; 71046; 80048; 80053; 80202; 81001; 82550; 82553; 82805; 82948; 83036; 83735; 83880; 84484; 85007; 85025; 85027; 90732; 93005; 93306; 99284; J0360; J1200; J1650; J1940; J2270; J2405; J3370; J7040; J7050